=== PATIENT | male | born 1930 | race Caucasian/White ===

== ENCOUNTER 2016-11-10 04:26 | Inpatient (IN) | payer OTHER, MEDICARE ==
[~2016-11-10] VITALS: Ht 167.6 cm; Wt 92.5 kg
[2016-11-10] MEDS ORDERED: MEMANTINE HCL10 MG PO (04:47)
[2016-11-10] MEDS ORDERED: ARICEPT10 MG PO (04:48)
[2016-11-10] MEDS ORDERED: ATORVASTATIN CA40 MG PO (04:49)
[2016-11-10] MEDS ORDERED: LEVOTHYROXINE75 MCG PO (04:50)
[2016-11-10] MEDS ORDERED: TAMSULOSIN HCL0.4 MG PO (04:50)
[2016-11-10] MEDS ORDERED: ASPIR 8181 M1 PO (04:52)
[2016-11-10 04:58] LABS: POINT-OF-CARE METER ID UU13113747
[2016-11-10 05:03] LABS: CARBON DIOXIDE (BICARBONATE) 24.7 MEQ/L (20-31); HEMATOCRIT 32.7 % (38.0-50.0); MCH 31.5 PG (29.0-34.0); MCHC 33.9 G/DL (30.0-36.0); MCV 92.9 FL (86-99); MEAN PLAT.VOLUME 9.1 uM^3 (9.0-12.4); PLATELET COUNT 232 K/uL (156-360); RBC DIS.WIDTH-CV 13.4 % (11.8-14.6); RBC DIS.WIDTH-SD 45.7 % (39-53); RED BLOOD COUNT 3.52 M/uL (4.00-5.50); WHITE BLOOD COUNT 15.1 K/uL (4.1-10.2)
[2016-11-10 05:08] LABS: INTER. NORMALIZED RATIO 1.1; PROTHROMBIN TIME 11.8 SEC (10.2-12.9)
[2016-11-10 05:11] LABS: PTT 25.2 SEC (25-37)
[2016-11-10 05:19] LABS: CHLORIDE 108 mEq/L (99-109); POTASSIUM 3.5 mEq/L (3.7-5.4); SODIUM 137 mEq/L (136-147)
[2016-11-10 05:21] LABS: GLUCOSE 167 mg/dL (70-99)
[2016-11-10 05:23] LABS: ANION GAP 9 MEQ/L (2-14); TOTAL BILIRUBIN 0.3 mg/dL (0.0-1.0)
[2016-11-10 05:24] LABS: TROP-I INTERPRETATION NEGATIVE; TROPONIN-I < 0.01 ng/mL (0.0-0.30)
[2016-11-10 05:25] LABS: ALKALINE PHOSPHATASE 38 IU/L (3-129); GFR ESTIMATE (CALCULATED) > 59 mL/min/
[2016-11-10 05:26] LABS: UREA NITROGEN (BUN) 47 mg/dL (9-23)
[2016-11-10 05:28] LABS: LIPASE 18 U/L (1.0-51.0)
[2016-11-10 08:24] LABS: D-DIMER ELISA < 150.00 ng/mLDDU (<230)
[2016-11-10] MEDS ORDERED: MULTIVITAMIN1 EAC2 PO (08:52)
[2016-11-10] MEDS ORDERED: FISH OIL 1,0001 EAC7 PO (08:53)
[2016-11-10] MEDS ORDERED: VITAMIN D31000 UNI2 PO (08:53)
[2016-11-10] MEDS ORDERED: COQ-10100 MG PO (08:54)
[2016-11-10 11:23] LABS: TROP-I INTERPRETATION NEGATIVE; TROPONIN-I 0.01 ng/mL (0.0-0.30)
[2016-11-10 11:27] VITALS: BP 121/58
[2016-11-10 11:58] LABS: INFLUENZA A VIRAL ANTIGEN NEGATIVE; INFLUENZA B VIRAL ANTIGEN NEGATIVE
[2016-11-10 15:44] VITALS: BP 133/89
[2016-11-10 15:46] VITALS: BP 124/58
[2016-11-10 17:08] LABS: TROP-I INTERPRETATION NEGATIVE; TROPONIN-I < 0.01 ng/mL (0.0-0.30)
[2016-11-10 19:32] VITALS: BP 134/61
[2016-11-10 23:11] LABS: TROP-I INTERPRETATION NEGATIVE; TROPONIN-I 0.02 ng/mL (0.0-0.30)
[2016-11-11 00:36] VITALS: BP 143/63
[2016-11-11 03:24] VITALS: BP 92/48
[2016-11-11 07:47] LABS: EOSINOPHIL (%) 2.3 % (0-5); EOSINOPHIL COUNT 0.3 K/uL (0-0.3); HEMATOCRIT 26.3 % (38.0-50.0); IMMATURE GRANULOCYTE (%) 0.5 % (0.0-0.7); IMMATURE GRANULOCYTE COUNT 0.1 K/uL; INSTRUMENT ABS NEUTROPHIL CT 6.4 K/uL; MCH 32.5 PG (29.0-34.0); MCHC 33.8 G/DL (30.0-36.0); MEAN PLAT.VOLUME 9.4 uM^3 (9.0-12.4); MONOCYTE (%) 9.7 % (3-12); MONOCYTE COUNT 1.1 K/uL (0-0.8); NEUTROPHIL (%) 59.7 % (45-76); NEUTROPHIL COUNT 6.4 K/uL (1.8-6.4); PLATELET COUNT 213 K/uL (156-360); RBC DIS.WIDTH-CV 14.1 % (11.8-14.6); RBC DIS.WIDTH-SD 49.3 % (39-53); WHITE BLOOD COUNT 10.8 K/uL (4.1-10.2)
[2016-11-11 07:48] LABS: ALKALINE PHOSPHATASE 26 IU/L (3-129); ANION GAP 3 MEQ/L (2-14); CHLORIDE 111 MEQ/L (99-109); GFR ESTIMATE (CALCULATED) > 59 mL/min/; POTASSIUM 3.6 MEQ/L (3.7-5.4); SAMPLE HEMOLYSIS CHECK 0; SAMPLE ICTERIC CHECK 0; SAMPLE LIPEMIA CHECK 0; SODIUM 141 MEQ/L (136-147); TOTAL BILIRUBIN 0.4 MG/DL (0.0-1.0); UREA NITROGEN (BUN) 26 mg/dL (9-23)
[2016-11-11 07:50] LABS: GLUCOSE 102 mg/dL (70-99)
[2016-11-11 07:52] LABS: RED BLOOD COUNT 2.74 M/uL (4.00-5.50)
[2016-11-11 08:26] LABS: INTERNAL CONTROL VALID? YES
[2016-11-11 11:17] LABS: IRON 83 MCG/DL (35-150)
[2016-11-11 11:34] LABS: FERRITIN 82 NG/ML (22-322)
[2016-11-11 11:44] LABS: IMM.RETIC FRACTION 23.5 % (3-19); RETIC HGB EQUIVALENT 34.8 (28-36); RETICULOCYTE COUNT 3.2 % (0.5-1.8)
[2016-11-11 12:17] VITALS: BP 120/55
[2016-11-11 18:26] VITALS: BP 144/65
[2016-11-11 19:23] VITALS: BP 131/61
[2016-11-11 21:16] LABS: ADD MIUA? NO; BILIRUBIN NEGATIVE; BLOOD NEGATIVE; COLOR STRAW ((YELLOW)); GLUCOSE (STRIP) NEGATIVE; KETONES NEGATIVE; LEUKOCYTES NEGATIVE; NITRITE NEGATIVE; PROTEIN (STRIP) NEGATIVE; SPECIFIC GRAVITY 1.012 (1.000-1.030); UCUL ADDED? NO; UROBILINOGEN 0.2 MG/DL (0.2-1.0)
[2016-11-12 03:38] VITALS: BP 135/62
[2016-11-12 06:33] LABS: EOSINOPHIL (%) 3.4 % (0-5); EOSINOPHIL COUNT 0.4 K/uL (0-0.3); HEMATOCRIT 25.9 % (38.0-50.0); IMMATURE GRANULOCYTE (%) 0.6 % (0.0-0.7); IMMATURE GRANULOCYTE COUNT 0.1 K/uL; INSTRUMENT ABS NEUTROPHIL CT 5.9 K/uL; LYMPHOCYTE COUNT 3.5 K/uL (1.0-2.8); MCH 31.3 PG (29.0-34.0); MCHC 32.8 G/DL (30.0-36.0); MCV 95.2 FL (86-99); MEAN PLAT.VOLUME 9.3 uM^3 (9.0-12.4); MONOCYTE (%) 8.9 % (3-12); NEUTROPHIL (%) 54.5 % (45-76); NEUTROPHIL COUNT 5.9 K/uL (1.8-6.4); PLATELET COUNT 216 K/uL (156-360); RED BLOOD COUNT 2.72 M/uL (4.00-5.50); WHITE BLOOD COUNT 10.9 K/uL (4.1-10.2)
[2016-11-12 06:48] LABS: ANION GAP 6 MEQ/L (2-14); CHLORIDE 111 MEQ/L (99-109); GFR ESTIMATE (CALCULATED) > 59 mL/min/; GLUCOSE 93 mg/dL (70-99); POTASSIUM 3.7 MEQ/L (3.7-5.4); SAMPLE HEMOLYSIS CHECK 0; SAMPLE ICTERIC CHECK 0; SAMPLE LIPEMIA CHECK 0; SODIUM 140 MEQ/L (136-147); UREA NITROGEN (BUN) 14 mg/dL (9-23)
[2016-11-12 07:25] VITALS: BP 145/66
[2016-11-12] MEDS ORDERED: CEFTIN500 MG PO (09:20)
== END 2016-11-12 10:48 | disposition home or self-care (01) | DRG 195 ==
LOC: EME → EDBD 04:26 → 2EAST 07:43 → EDOF 07:43 → ENRESERV 07:51 → CANRESERV 07:51 → EDOF 08:10 → ENRESERV 08:22 → 2EAST 09:00
PROVIDERS: Emergency Medicine; Hospitalist
DX: J15.9 Unspecified bacterial pneumonia (principal); I95.9 Hypotension, unspecified; E86.1 Hypovolemia; R09.02 Hypoxemia; D64.9 Anemia, unspecified; I25.10 Atherosclerotic heart disease of native coronary artery without angina pectoris; E03.9 Hypothyroidism, unspecified; E78.5 Hyperlipidemia, unspecified; R61 Generalized hyperhidrosis; I25.2 Old myocardial infarction; Z87.891 Personal history of nicotine dependence; Z95.1 Presence of aortocoronary bypass graft
CPT/HCPCS: 71010; 80048; 80053; 81003; 82607; 82728; 82746; 82803; 82948; 83540; 83605; 83690; 83880; 84466; 84484; 85025; 85027; 85045; 85379; 85610; 85730; 87040; 87449; 87502; 93005; 94640; 99281; 99285; J0456; J0696; J1650; J3480; J7030; J7050

== ENCOUNTER 2016-11-26 08:51 | Inpatient (IN) | payer OTHER, MEDICARE ==
[~2016-11-26] VITALS: Ht 167.6 cm; Wt 77.2 kg
[~2016-11-26 08:51] MED LIST: ARICEPT10 MG PO; ASPIR 8181 M1 PO; ATORVASTATIN CA40 MG PO; CEFTIN500 MG PO; COQ-10100 MG PO; FISH OIL 1,0001 EAC7 PO; LEVOTHYROXINE75 MCG PO; MEMANTINE HCL10 MG PO; MULTIVITAMIN1 EAC2 PO; TAMSULOSIN HCL0.4 MG PO; VITAMIN D31000 UNI2 PO
[2016-11-26 09:33] LABS: HEMATOCRIT 26.3 % (38.0-50.0); MCH 31.8 PG (29.0-34.0); MCHC 31.9 G/DL (30.0-36.0); MCV 99.6 FL (86-99); MEAN PLAT.VOLUME 9.2 uM^3 (9.0-12.4); PLATELET COUNT 349 K/uL (156-360); RBC DIS.WIDTH-CV 15.4 % (11.8-14.6); RBC DIS.WIDTH-SD 55.9 % (39-53); RED BLOOD COUNT 2.64 M/uL (4.00-5.50); WHITE BLOOD COUNT 18.4 K/uL (4.1-10.2)
[2016-11-26 09:39] LABS: CARBON DIOXIDE (BICARBONATE) 22.9 MEQ/L (20-31); CHLORIDE 108 mEq/L (99-109); SODIUM 137 mEq/L (136-147)
[2016-11-26 09:41] LABS: GLUCOSE 204 mg/dL (70-99)
[2016-11-26 09:42] LABS: ANION GAP 11 MEQ/L (2-14)
[2016-11-26 09:44] LABS: GFR ESTIMATE (CALCULATED) > 59 mL/min/
[2016-11-26 09:45] LABS: UREA NITROGEN (BUN) 52 mg/dL (9-23)
[2016-11-26 09:51] LABS: TROP-I INTERPRETATION NEGATIVE; TROPONIN-I 0.02 ng/mL (0.0-0.30)
[2016-11-26 10:06] LABS: D-DIMER ELISA < 150.00 ng/mLDDU (<230)
[2016-11-26 13:02] LABS: TROP-I INTERPRETATION NEGATIVE; TROPONIN-I 0.01 ng/mL (0.0-0.30)
[2016-11-26 13:08] VITALS: BP 112/54
[2016-11-26 14:08] LABS: INFLUENZA A VIRAL ANTIGEN NEGATIVE; INFLUENZA B VIRAL ANTIGEN NEGATIVE
[2016-11-26 15:52] LABS: ADD MIUA? NO; BILIRUBIN NEGATIVE; BLOOD NEGATIVE; COLOR YELLOW ((YELLOW)); GLUCOSE (STRIP) 50; KETONES NEGATIVE; LEUKOCYTES NEGATIVE; NITRITE NEGATIVE; PROTEIN (STRIP) NEGATIVE; SPECIFIC GRAVITY 1.029 (1.000-1.030); UROBILINOGEN 0.2 MG/DL (0.2-1.0)
[2016-11-26 16:37] VITALS: BP 124/62
[2016-11-26 16:49] LABS: BASE EXCESS -4.9 mEq/L (-3 to +3); BICARBONATE 18.2 mEq/L (22-26); CARBOXY HGB 2.8 % (0-5); COMMENTS - BLOOD GASES A+C+; FI02 21 %; METHEMOGLOBIN 1.2 % (0-1.5); PCO2 25 mm Hg (35-45); PO2 83 mm Hg (80-100); SITE LR; pH 7.47 (7.35-7.45)
[2016-11-26 16:50] LABS: TOTAL RESP RATE 16 resp/min
[2016-11-26 18:01] LABS: TROP-I INTERPRETATION NEGATIVE; TROPONIN-I 0.03 ng/mL (0.0-0.30)
[2016-11-26 19:20] VITALS: BP 114/55
[2016-11-27] VITALS (13 sets, daily range): BP systolic 90–131; BP diastolic 52–76
[2016-11-27 02:33] LABS: HEMATOCRIT 19.3 % (38.0-50.0); MCH 32.3 PG (29.0-34.0); MCHC 32.1 G/DL (30.0-36.0); MCV 100.5 FL (86-99); NRBC (%) 0.1 /100 WBC (0-0); RBC DIS.WIDTH-CV 16.3 % (11.8-14.6); RBC DIS.WIDTH-SD 59.3 % (39-53); WHITE BLOOD COUNT 16.5 K/uL (4.1-10.2)
[2016-11-27 02:35] LABS: RED BLOOD COUNT 1.92 M/uL (4.00-5.50)
[2016-11-27 02:38] LABS: CHLORIDE 109 mEq/L (99-109); POTASSIUM 3.7 mEq/L (3.7-5.4)
[2016-11-27 02:39] LABS: SODIUM 139 mEq/L (136-147)
[2016-11-27 02:40] LABS: GLUCOSE 148 mg/dL (70-99)
[2016-11-27 02:42] LABS: ANION GAP 10 MEQ/L (2-14)
[2016-11-27 02:44] LABS: GFR ESTIMATE (CALCULATED) > 59 mL/min/
[2016-11-27 02:45] LABS: UREA NITROGEN (BUN) 35 mg/dL (9-23)
[2016-11-27 03:06] LABS: MEAN PLAT.VOLUME 8.9 uM^3 (9.0-12.4); PLAT.SUFFICIENCY ADEQUATE
[2016-11-27 03:07] LABS: PLATELET COUNT 243 K/uL (156-360)
[2016-11-27 03:28] LABS: HEMATOCRIT 18.3 % (38.0-50.0); MCV 99.5 FL (86-99)
[2016-11-27 04:28] LABS: TOTAL BILIRUBIN 0.4 mg/dL (0.0-1.0)
[2016-11-27 04:37] LABS: ALKALINE PHOSPHATASE 34 IU/L (3-129)
[2016-11-27 04:40] LABS: DIRECT BILIRUBIN 0.1 mg/dL (0.0-0.3)
[2016-11-27 05:20] LABS: LACTATE DEHYDROGENASE 90 IU/L (20-246)
[2016-11-27 05:47] LABS: INTER. NORMALIZED RATIO 1.2; PROTHROMBIN TIME 12.8 SEC (10.2-12.9)
[2016-11-27 05:50] LABS: PTT 24.8 SEC (25-37)
[2016-11-27 11:34] LABS: POC NON-PRINT COM 1 ND
[2016-11-27 13:07] LABS: HEMATOCRIT 24.5 % (38.0-50.0); MCV 96.5 FL (86-99)
[2016-11-28 04:21] VITALS: BP 122/77
[2016-11-28 07:34] VITALS: BP 118/60
[2016-11-28 09:09] LABS: BASOPHIL COUNT 0.1 K/uL (0-0.1); EOSINOPHIL COUNT 0.3 K/uL (0-0.3); HEMATOCRIT 24.4 % (38.0-50.0); IMMATURE GRANULOCYTE (%) 0.6 % (0.0-0.7); IMMATURE GRANULOCYTE COUNT 0.1 K/uL; INSTRUMENT ABS NEUTROPHIL CT 8.5 K/uL; LYMPHOCYTE COUNT 2.5 K/uL (1.0-2.8); MCH 30.7 PG (29.0-34.0); MCV 96.1 FL (86-99); MONOCYTE (%) 9.5 % (3-12); MONOCYTE COUNT 1.2 K/uL (0-0.8); NEUTROPHIL (%) 67.7 % (45-76); NEUTROPHIL COUNT 8.5 K/uL (1.8-6.4); NRBC (%) 0.2 /100 WBC (0-0); PLATELET COUNT 214 K/uL (156-360); RBC DIS.WIDTH-CV 19.9 % (11.8-14.6); RBC DIS.WIDTH-SD 68.1 % (39-53); WHITE BLOOD COUNT 12.6 K/uL (4.1-10.2)
[2016-11-28 09:36] LABS: RED BLOOD COUNT 2.54 M/uL (4.00-5.50)
[2016-11-28 11:20] VITALS: BP 108/54
[2016-11-28 15:01] VITALS: BP 104/54
[2016-11-28 19:04] VITALS: BP 116/55
[2016-11-29] VITALS (10 sets, daily range): BP systolic 97–122; BP diastolic 51–60
[2016-11-29 05:15] LABS: HEMATOCRIT 21.4 % (38.0-50.0); MCH 32.4 PG (29.0-34.0); MCHC 33.6 G/DL (30.0-36.0); MCV 96.4 FL (86-99); MEAN PLAT.VOLUME 9.6 uM^3 (9.0-12.4); NRBC (%) 0.2 /100 WBC (0-0); PLATELET COUNT 187 K/uL (156-360); RBC DIS.WIDTH-CV 19.3 % (11.8-14.6); RBC DIS.WIDTH-SD 66.3 % (39-53); RED BLOOD COUNT 2.22 M/uL (4.00-5.50); WHITE BLOOD COUNT 12.3 K/uL (4.1-10.2)
[2016-11-29 09:48] LABS: HEMATOCRIT 23.6 % (38.0-50.0); MCV 97.1 FL (86-99)
[2016-11-29 15:16] LABS: HEMATOCRIT 26.4 % (38.0-50.0); MCV 95.7 FL (86-99)
[2016-11-30 00:02] VITALS: BP 105/52
[2016-11-30 04:23] VITALS: BP 112/53
[2016-11-30 05:22] LABS: HEMATOCRIT 24.9 % (38.0-50.0); MCH 31.9 PG (29.0-34.0); MCHC 33.7 G/DL (30.0-36.0); MCV 94.7 FL (86-99); MEAN PLAT.VOLUME 9.7 uM^3 (9.0-12.4); PLATELET COUNT 183 K/uL (156-360); RBC DIS.WIDTH-CV 19.4 % (11.8-14.6); RBC DIS.WIDTH-SD 63.2 % (39-53); RED BLOOD COUNT 2.63 M/uL (4.00-5.50); WHITE BLOOD COUNT 13.9 K/uL (4.1-10.2)
[2016-11-30 05:52] LABS: ANION GAP 8 MEQ/L (2-14); CHLORIDE 107 MEQ/L (99-109); GFR ESTIMATE (CALCULATED) > 59 mL/min/; GLUCOSE 98 mg/dL (70-99); POTASSIUM 3.2 MEQ/L (3.7-5.4); SAMPLE HEMOLYSIS CHECK 0; SAMPLE ICTERIC CHECK 0; SAMPLE LIPEMIA CHECK 0; SODIUM 140 MEQ/L (136-147); UREA NITROGEN (BUN) 24 mg/dL (9-23)
[2016-11-30 07:30] VITALS: BP 122/58
[2016-11-30 12:41] VITALS: BP 116/54
[2016-11-30 15:03] LABS: HEMATOCRIT 27.1 % (38.0-50.0); MCV 95.1 FL (86-99)
[2016-11-30 16:00] VITALS: BP 134/64
[2016-11-30] MEDS ORDERED: PANTOPRAZOLE SO40 MG PO (16:33)
== END 2016-11-30 18:16 | disposition home health service (06) | DRG 381 ==
LOC: EME 08:51 → 4EAST 10:31 → EDOF 10:31 → ENRESERV 10:33 → 4EAST 11:26 → EDOF 11:36 → ENRESERV 11:37 → 4EAST 12:48
PROVIDERS: Emergency Medicine; Hospitalist; Internal Medicine
PROC: 0DJ08ZZ Inspection of Upper Intestinal Tract, Via Natural or Artificial Opening Endoscopic (ICD-10-PCS; principal; 2016-11-27)
PROC: 30233N1 Transfusion of Nonautologous Red Blood Cells into Peripheral Vein, Percutaneous Approach (ICD-10-PCS; principal; 2016-11-27)
DX: K22.11 Ulcer of esophagus with bleeding (principal); D62 Acute posthemorrhagic anemia; E87.2 Acidosis; I95.9 Hypotension, unspecified; I08.3 Combined rheumatic disorders of mitral, aortic and tricuspid valves; I27.20 Pulmonary hypertension, unspecified; R00.0 Tachycardia, unspecified; R94.31 Abnormal electrocardiogram [ECG] [EKG]; I10 Essential (primary) hypertension; I25.10 Atherosclerotic heart disease of native coronary artery without angina pectoris; E78.2 Mixed hyperlipidemia; E03.9 Hypothyroidism, unspecified; F03.90 Unspecified dementia, unspecified severity, without behavioral disturbance, psychotic disturbance, mood disturbance, and anxiety; K21.9 Gastro-esophageal reflux disease without esophagitis; K44.9 Diaphragmatic hernia without obstruction or gangrene; I71.2 Thoracic aortic aneurysm, without rupture; Z66 Do not resuscitate; E66.9 Obesity, unspecified; Z68.27 Body mass index [BMI] 27.0-27.9, adult; Z23 Encounter for immunization; I25.2 Old myocardial infarction; Z95.1 Presence of aortocoronary bypass graft; Z79.82 Long term (current) use of aspirin; Z87.891 Personal history of nicotine dependence; Z80.0 Family history of malignant neoplasm of digestive organs
CPT/HCPCS: 36600; 71020; 71250; 74176; 80048; 80076; 81003; 82272; 82803; 83605; 83615; 83880; 84484; 85014; 85018; 85025; 85027; 85379; 85610; 85730; 86850; 86880; 86900; 86901; 86920; 87040; 87086; 87493; 87502; 90686; 93005; 93306; 99281; 99285; C9113; J0456; J0692; J1644; J1940; J2543; J3370; J7030; J7050; P9016